=== PATIENT | female | born 1990 | race Caucasian/White ===

== ENCOUNTER → 2021-09-01 | Outpatient (CLI) | payer OTHER ==
[~2021-09-01] MED LIST: BIRTH CONTROL PILL PO
--- NOTE | 2021-09-01 14:24 | Diagnostic Imaging Report ---
INDICATION: Routine care. TECHNIQUE: Multiple real-time grayscale images were obtained over the gravid uterus. COMPARISON: None. FINDINGS: There is a single live intrauterine gestation in cephalic presentation. The cervix has a small amount of fluid and measures 4.3 cm. Width of the endocervical fluid measures up to 5 mm. The placenta is posterior to the maternal left. There is no evidence of previa. The lateral ventricles are seen. The cerebellum and cisterna magna are seen. The nose and lips are seen. The cord insertion is seen. The profile is seen. The diaphragm is seen. The heart rate measures 132 BPM. The right ventricular outflow tract and the left ventricular outflow tract are seen. A four-chamber heart is seen. There are bilateral upper extremities. There are bilateral lower extremities. The upper and lower spine is seen. The bladder is seen. There are two umbilical arteries consistent with a three-vessel cord. The kidneys are seen. Biometrical measurements are as follows: Biparietal 4.81 cm, age 20 weeks 4 days. Head circumference 17.70 cm, age 20 weeks 2 days. Abdominal circumference 14.98 cm, age 20 weeks 2 days. Femur length 3.28 cm, age 20 weeks 2 days. Sonographic estimate age: 20 weeks 3 days. Sonographic estimated date of delivery: 01/16/2022. Estimated Weight: 341 gm (+/- 50 gm). LMP percentile: 51%. heart rate: 132 beats per minute. number: 1 of 1. IMPRESSION: 1. Single live intrauterine gestation measuring at 20 weeks and 3 days, which is within range of the clinical dates. 2. Unremarkable anatomic survey. 3. Normal length of the cervix; however, there is endocervical fluid measuring 5 mm wide. Dictated by: Dictated on workstation # [id number]
== END ==
LOC: RAD 12:00
PROVIDERS: ATTEND Nurse Practitioner Women's Health
DX: Z34.02 Encounter for supervision of normal first pregnancy, second trimester (principal)
CPT/HCPCS: 76805